=== PATIENT | male | born 1995 | race African-American/Black ===

== ENCOUNTER 2016-04-25 08:55 | Emergency (ER) | payer MEDICAID ==
[~2016-04-25] VITALS: Ht 188 cm; Wt 68.5 kg
[2016-04-25 09:14] VITALS: BP 120/87
== END 2016-04-25 09:44 | disposition home or self-care (01) ==
LOC: ER 08:56
DX: J45.909 Unspecified asthma, uncomplicated (principal); F41.9 Anxiety disorder, unspecified; F12.10 Cannabis abuse, uncomplicated

== ENCOUNTER 2016-04-30 10:48 | Emergency (ER) | payer MEDICAID ==
[~2016-04-30] VITALS: Ht 188 cm; Wt 68.5 kg
[2016-04-30 11:05] VITALS: BP 104/65
[2016-04-30] MEDS ORDERED: IPRATROPIUM BROM 0.5 MG/2.5ML INH SOL NEB ONE (12:30)
[2016-04-30] MEDS ORDERED: ALBUTEROL SULF 2.5 MG/0.5ML(0.5%) NEB SOLN NEB ONE (12:30)
[2016-04-30] MEDS ORDERED: methylPREDNISolone SOD SUCC 125 MG/2 ML VL IM ONE (12:30)
[2016-04-30] MEDS ORDERED: cefTRIAXone SOD 1,000 MG VL IM ONE (12:30)
== END 2016-04-30 13:44 | disposition home or self-care (01) ==
LOC: ER 10:48
DX: J45.901 Unspecified asthma with (acute) exacerbation (principal); F12.10 Cannabis abuse, uncomplicated
CPT/HCPCS: 94640

== ENCOUNTER 2016-05-14 14:20 | Emergency (ER) | payer MEDICAID ==
[~2016-05-14] VITALS: Ht 188 cm; Wt 68.0 kg
[2016-05-14 17:47] VITALS: BP 124/73
[2016-05-14] MEDS ORDERED: ALBUTEROL SULF 2.5 MG/0.5ML(0.5%) NEB SOLN NEB ONE (18:15)
[2016-05-14] MEDS ORDERED: IPRATROPIUM BROM 0.5 MG/2.5ML INH SOL NEB ONE (18:15)
[2016-05-14] MEDS ORDERED: cefTRIAXone SOD 1,000 MG VL IM ONE (18:15)
[2016-05-14] MEDS ORDERED: methylPREDNISolone SOD SUCC 125 MG/2 ML VL IM ONE (18:15)
== END 2016-05-14 19:05 | disposition home or self-care (01) ==
LOC: ER 14:23
DX: J45.901 Unspecified asthma with (acute) exacerbation (principal); J03.90 Acute tonsillitis, unspecified; F17.210 Nicotine dependence, cigarettes, uncomplicated; F12.10 Cannabis abuse, uncomplicated
CPT/HCPCS: 94640; 96372; 99284; J0696; J2930

== ENCOUNTER 2016-06-01 09:42 | Emergency (ER) | payer MEDICAID ==
[~2016-06-01] VITALS: Ht 188 cm; Wt 68.5 kg
[2016-06-01 10:17] VITALS: BP 120/93
== END 2016-06-01 11:05 | disposition home or self-care (01) ==
LOC: ER 09:42
DX: J20.9 Acute bronchitis, unspecified (principal); J45.909 Unspecified asthma, uncomplicated; F17.210 Nicotine dependence, cigarettes, uncomplicated; F12.10 Cannabis abuse, uncomplicated

== ENCOUNTER 2016-06-08 13:02 | Emergency (ER) | payer MEDICAID ==
[~2016-06-08] VITALS: Ht 188 cm; Wt 68.5 kg
[2016-06-08 13:20] VITALS: BP 94/60
[2016-06-08 14:23] LABS: Basophils # (auto) 0 uL; Basophils % (auto) 0.8 % (0.0-2.0); Eosinophils # (auto) 0.3 uL; Eosinophils % (auto) 4.7 % (0.0-7.0); Hematocrit 47.1 % (41.0-53.0); Hemoglobin 15.6 g/dL (13.5-17.5); Lymphocytes # (auto) 2.3 uL; Lymphocytes % (auto) 40.9 % (10.0-50.0); Mean Corpuscular Hemoglobin 29.5 pg (28.0-32.0); Mean Corpuscular Hgb Conc. 33.2 g/dL (32.0-36.0); Mean Corpuscular Volume 89.1 fL (80.0-100.0); Mean Platelet Volume 9.3 fL (7.4-10.4); Monocytes # (auto) 0.5 uL; Neutrophils # (auto) 2.5 uL; Neutrophils % (auto) 44.6 % (37.0-80.0); Platelet Count (auto) 263 10^3/uL (140-450); Red Cell Distribution Width 12.5 % (11.6-16.0); White Blood Cell 5.6 10^3/uL (4.4-10.8)
[2016-06-08 14:29] LABS: Albumin 4.1 g/dL (3.4-5.0); Alkaline Phosphatase 69 U/L (45-117); Anion Gap 7 (5-15); Aspartate Aminotransferase 13 U/L (15-37); BUN/Creatinine Ratio 8.7; Bilirubin, Total 0.5 mg/dL (0.2-1.0); Blood Urea Nitrogen 9 mg/dL (7-18); Calcium 8.9 mg/dL (8.5-10.1); Carbon Dioxide 32 mmol/L (21-32); Chloride 104 mmol/L (98-107); GFR African American 117 mL/min; GFR Non-African American 97 mL/min; Glucose 91 mg/dL (74-106); Sodium 143 mmol/L (136-145); Total Protein 7.4 g/dL (6.4-8.2)
== END 2016-06-08 21:50 | disposition left against medical advice (07) ==
LOC: ER 13:02
DX: R07.89 Other chest pain (principal); Z53.21 Procedure and treatment not carried out due to patient leaving prior to being seen by health care provider
CPT/HCPCS: 36415; 71020; 80053; 84484; 85025

== ENCOUNTER 2016-06-09 07:48 | Emergency (ER) | payer MEDICAID ==
[~2016-06-09] VITALS: Ht 188 cm; Wt 68.5 kg
[2016-06-09 08:27] LABS: Basophils # (auto) 0 uL; Basophils % (auto) 0.6 % (0.0-2.0); Eosinophils # (auto) 0.3 uL; Eosinophils % (auto) 4.2 % (0.0-7.0); Hematocrit 47.9 % (41.0-53.0); Hemoglobin 16.3 g/dL (13.5-17.5); Lymphocytes # (auto) 2.1 uL; Lymphocytes % (auto) 27.4 % (10.0-50.0); Mean Corpuscular Hemoglobin 29.8 pg (28.0-32.0); Mean Corpuscular Volume 87.9 fL (80.0-100.0); Mean Platelet Volume 9.5 fL (7.4-10.4); Monocytes # (auto) 0.5 uL; Monocytes % (auto) 6.4 % (0.0-12.0); Neutrophils # (auto) 4.6 uL; Neutrophils % (auto) 61.4 % (37.0-80.0); Platelet Count (auto) 264 10^3/uL (140-450); Red Cell Distribution Width 12.8 % (11.6-16.0); White Blood Cell 7.5 10^3/uL (4.4-10.8)
[2016-06-09 08:54] LABS: Albumin 4.2 g/dL (3.4-5.0); Alkaline Phosphatase 69 U/L (45-117); Anion Gap 10 (5-15); Aspartate Aminotransferase 14 U/L (15-37); BUN/Creatinine Ratio 10.2; Bilirubin, Total 0.7 mg/dL (0.2-1.0); Blood Urea Nitrogen 10 mg/dL (7-18); Calcium 9.1 mg/dL (8.5-10.1); Carbon Dioxide 25 mmol/L (21-32); Chloride 107 mmol/L (98-107); GFR African American 124 mL/min; GFR Non-African American 103 mL/min; Glucose 113 mg/dL (74-106); Potassium 3.9 mmol/L (3.5-5.1); Sodium 142 mmol/L (136-145); Total Protein 7.5 g/dL (6.4-8.2)
[2016-06-09 10:06] VITALS: BP 146/67
[2016-06-09] MEDS ORDERED: ALBUTEROL SULF 2.5 MG/0.5ML(0.5%) NEB SOLN NEB ONE (10:45)
[2016-06-09] MEDS ORDERED: DEXAMETHASONE SOD PHOS 10MG/1ML VIAL INJ IM ONE (10:45)
== END 2016-06-09 12:10 | disposition home or self-care (01) ==
LOC: ER 07:48
DX: R07.89 Other chest pain (principal); J45.909 Unspecified asthma, uncomplicated; F12.10 Cannabis abuse, uncomplicated; F17.210 Nicotine dependence, cigarettes, uncomplicated
CPT/HCPCS: 36415; 71020; 80053; 83735; 84484; 85025; 93005; 94640; 96372; 99285; J1100

== ENCOUNTER 2016-10-25 08:24 | Emergency (ER) | payer MEDICAID ==
[~2016-10-25] VITALS: Ht 15.2 cm; Wt 4.4 kg
[2016-10-25 08:33] VITALS: BP 114/85
== END 2016-10-25 09:22 | disposition home or self-care (01) ==
LOC: ER 08:24
DX: J45.901 Unspecified asthma with (acute) exacerbation (principal); J20.9 Acute bronchitis, unspecified; F17.210 Nicotine dependence, cigarettes, uncomplicated; F12.10 Cannabis abuse, uncomplicated
CPT/HCPCS: 71020; 93005

== ENCOUNTER 2016-11-08 09:01 | Emergency (ER) | payer MEDICAID ==
[~2016-11-08] VITALS: Ht 188 cm; Wt 74.8 kg
[2016-11-08] MEDS ORDERED: methylPREDNISolone SOD SUCC 125 MG/2 ML VL IV ONE (09:30)
[2016-11-08] MEDS ORDERED: IPRATROPIUM BROM 0.5 MG/2.5ML INH SOL HHN ONE (09:30)
[2016-11-08] MEDS ORDERED: ALBUTEROL SULF 2.5 MG/0.5ML(0.5%) NEB SOLN HHN ONE (09:30)
[2016-11-08 09:40] VITALS: BP 133/70
[2016-11-08 10:21] LABS: Albumin 3.8 g/dL (3.4-5.0); Alkaline Phosphatase 58 U/L (45-117); Anion Gap 8 (5-15); Aspartate Aminotransferase 13 U/L (15-37); BUN/Creatinine Ratio 12.5; Bilirubin, Total 0.7 mg/dL (0.2-1.0); Blood Urea Nitrogen 11 mg/dL (7-18); Calcium 8.4 mg/dL (8.5-10.1); Carbon Dioxide 29 mmol/L (21-32); Chloride 103 mmol/L (98-107); GFR African American 141 mL/min; GFR Non-African American 116 mL/min; Glucose 96 mg/dL (74-106); Magnesium 2.1 mg/dL (1.6-2.6); Sodium 140 mmol/L (136-145); Total Protein 6.9 g/dL (6.4-8.2)
[2016-11-08 10:40] LABS: Basophils # (auto) 0 uL; Basophils % (auto) 0.6 % (0.0-2.0); CONDITION Y; Eosinophils # (auto) 0.2 uL; Eosinophils % (auto) 3.8 % (0.0-7.0); Hematocrit 43.3 % (41.0-53.0); Hemoglobin 14.8 g/dL (13.5-17.5); Lymphocytes # (auto) 1.8 uL; Lymphocytes % (auto) 29.7 % (10.0-50.0); Mean Corpuscular Hemoglobin 30.4 pg (28.0-32.0); Mean Corpuscular Hgb Conc. 34.1 g/dL (32.0-36.0); Mean Platelet Volume 9.2 fL (7.4-10.4); Monocytes # (auto) 0.5 uL; Monocytes % (auto) 8.4 % (0.0-12.0); Neutrophils # (auto) 3.5 uL; Neutrophils % (auto) 57.5 % (37.0-80.0); Platelet Count (auto) 228 10^3/uL (140-450); Red Cell Distribution Width 13.1 % (11.6-16.0)
== END 2016-11-08 11:13 | disposition home or self-care (01) ==
LOC: ER 09:01
DX: J45.909 Unspecified asthma, uncomplicated (principal); F17.210 Nicotine dependence, cigarettes, uncomplicated; F12.10 Cannabis abuse, uncomplicated
CPT/HCPCS: 36415; 80053; 83735; 84484; 85025; 93005; 94640; 94761; 96374; 99285; J2930

== ENCOUNTER 2016-12-12 09:35 | Emergency (ER) | payer MEDICAID ==
[~2016-12-12] VITALS: Ht 188 cm; Wt 70.3 kg
[2016-12-12 09:47] VITALS: BP 128/73
[2016-12-12] MEDS ORDERED: IPRATROPIUM BROM 0.5 MG/2.5ML INH SOL HHN ONE (10:00)
[2016-12-12] MEDS ORDERED: methylPREDNISolone SOD SUCC 125 MG/2 ML VL IV ONE (10:00)
[2016-12-12] MEDS ORDERED: ALBUTEROL SULF 2.5 MG/0.5ML(0.5%) NEB SOLN HHN ONE (10:00)
[2016-12-12] MEDS ORDERED: ONDANSETRON HCL 4 MG/2 ML VIAL IV ONE (10:15)
== END 2016-12-12 11:23 | disposition home or self-care (01) ==
LOC: ER 09:35
DX: J45.901 Unspecified asthma with (acute) exacerbation (principal); F17.210 Nicotine dependence, cigarettes, uncomplicated
CPT/HCPCS: 71010; 94640; 94761; 96374; 96375; 99284; J2405; J2930

== ENCOUNTER 2018-12-21 12:52 | Emergency (ER) | payer MEDICAID ==
[~2018-12-21] VITALS: Ht 190.5 cm; Wt 74.8 kg
[2018-12-21 14:17] VITALS: BP 127/86
[2018-12-21] MEDS ORDERED: ALBUTEROL SULF 2.5 MG/0.5ML(0.5%) NEB SOLN NEB ONE (15:00)
[2018-12-21] MEDS ORDERED: IPRATROPIUM BROM 0.5 MG/2.5ML INH SOL NEB ONE (15:00)
== END 2018-12-21 15:30 | disposition home or self-care (01) ==
LOC: ER 12:52
DX: J45.901 Unspecified asthma with (acute) exacerbation (principal); F41.9 Anxiety disorder, unspecified; Z76.0 Encounter for issue of repeat prescription; Z88.0 Allergy status to penicillin; Z88.6 Allergy status to analgesic agent; Z88.8 Allergy status to other drugs, medicaments and biological substances
CPT/HCPCS: 99283; J7611; J7644